=== PATIENT | male | born 1950 | race Caucasian/White ===

== ENCOUNTER 2017-12-14 12:43 | Emergency (ER) | payer MEDICARE, OTHER ==
[~2017-12-14] VITALS: Ht 170.2 cm; Wt 80.0 kg
[2017-12-14 12:51] VITALS: BP 131/69
[2017-12-14] MEDS ORDERED: PENI500T2 PO (14:20)
[2017-12-14] MEDS ORDERED: IBUP-1984 PO (14:20)
== END 2017-12-14 14:28 | disposition home or self-care (01) ==
LOC: ER 12:44
DX: S02.5XXA Fracture of tooth (traumatic), initial encounter for closed fracture (principal); K04.7 Periapical abscess without sinus; I10 Essential (primary) hypertension; Z79.899 Other long term (current) drug therapy; Y08.89XA Assault by other specified means, initial encounter; Y93.89 Activity, other specified; Y92.89 Other specified places as the place of occurrence of the external cause; Y99.8 Other external cause status
CPT/HCPCS: 99283